=== PATIENT | female | born 1960 | race Caucasian/White ===

== ENCOUNTER 2024-09-19 09:38 | Emergency (ER) | payer MEDICAID ==
[~2024-09-19] VITALS: Ht 149.9 cm; Wt 63.0 kg
[2024-09-19] MEDS: MECLIZINE HCL 12.5 MG TABLET PO ONE (10:00)
[2024-09-19] MEDS: IV NS 0.9% 1,000 ML BAG IV ONE (10:00)
[2024-09-19] MEDS: METOCLOPRAMIDE HCL 10 MG/2 ML VIAL IV ONE (10:00)
[2024-09-19] MEDS ORDERED: METOCLOPRAMIDE HCL 10 MG/2 ML VIAL ONE (10:05)
[2024-09-19] MEDS ORDERED: MECLIZINE HCL 25 MG TABLET ONE (10:05)
[2024-09-19 10:12] LABS: BASOPHILS # (AUTO) 0.1 K/uL (0.0-0.2); BASOPHILS % (AUTO) 0.7 % (0.0-2.0); EOSINOPHILS # (AUTO) 0.2 K/uL (0.0-0.7); EOSINOPHILS % (AUTO) 2.4 % (0.0-6.0); HEMATOCRIT 32 % (33-45); HEMOGLOBIN 10.4 g/dL (11.5-14.8); LYMPHOCYTES # (AUTO) 1.4 K/uL (0.8-4.8); LYMPHOCYTES % (AUTO) 15.9 % (20.0-44.0); MEAN CORPUSCULAR HEMOGLOBIN 27 PG (26.0-33.0); MEAN CORPUSCULAR HGB CONC 33 g/dl (31.0-36.0); MEAN CORPUSCULAR VOLUME 82 fL (82-100); MONOCYTES # (AUTO) 0.2 K/uL (0.1-1.30); MONOCYTES % (AUTO) 2.2 % (2.0-12.0); NEUTROPHILS # (AUTO) 6.8 K/uL (1.8-8.9); NEUTROPHILS % (AUTO) 78.8 % (43.0-81.0); PLATELET COUNT (AUTO) 198 K/uL (150-450); RED BLOOD CELL COUNT(AUTO) 3.88 MIL/uL (4.0-5.2); RED CELL DISTRIBUTION WIDTH 13.4 % (11.5-15.0); WHITE BLOOD COUNT (AUTO) 8.6 K/uL (4.3-11.0)
[2024-09-19 10:18] LABS: CALCIUM, SERUM 8.2 mg/dL (8.5-10.1); CREATININE 0.6 mg/dL (0.6-1.3); POTASSIUM 4.1 mmol/L (3.5-5.1)
[2024-09-19 12:46] VITALS: BP 133/66; TEMP 98.4; O2SAT 100
== END 2024-09-19 12:35 | disposition home or self-care (01) ==
LOC: ER 09:45
DX: R55 Syncope and collapse (principal); R42 Dizziness and giddiness; R11.0 Nausea; I10 Essential (primary) hypertension; E78.5 Hyperlipidemia, unspecified
CPT/HCPCS: 99285; 96374; 70450; 96361; 93005; 85025; 80048; 36415; 84484; J8597; J2765; J7030 ×2

== ENCOUNTER 2025-05-05 19:52 | Emergency (ER) | payer MEDICAID ==
[~2025-05-05] VITALS: Ht 154.9 cm; Wt 59.0 kg
[2025-05-05] MEDS ORDERED: IBUPROFEN 600 MG TABLET ONE (20:48)
[2025-05-05] MEDS: IBUPROFEN 600 MG TABLET PO ONE (20:48)
[2025-05-05] MEDS ORDERED: KETO10TA2 PO (21:50)
[2025-05-05] MEDS ORDERED: oxyCODONE/APAP (5/325 MG) 1 UDTAB TABLET ONE (21:58)
[2025-05-05] MEDS: oxyCODONE/APAP (5/325 MG) 1 UDTAB TABLET PO ONE (21:59)
[2025-05-05 22:02] VITALS: BP 122/70; TEMP 98.6; O2SAT 96
== END 2025-05-05 22:24 | disposition home or self-care (01) ==
LOC: ER 19:54
DX: S82.491A Other fracture of shaft of right fibula, initial encounter for closed fracture (principal); E78.5 Hyperlipidemia, unspecified; I51.9 Heart disease, unspecified; W01.0XXA Fall on same level from slipping, tripping and stumbling without subsequent striking against object, initial encounter; Y93.89 Activity, other specified; Y92.89 Other specified places as the place of occurrence of the external cause; Y99.9 Unspecified external cause status
CPT/HCPCS: 73130-TC; 73610-TC; 73630-TC